=== PATIENT | female | born 2000 | race Caucasian/White ===

== ENCOUNTER 2022-07-28 03:50 | Emergency (ER) | payer OTHER ==
[~2022-07-28] VITALS: Ht 167.6 cm; Wt 95.0 kg
[2022-07-28] MEDS ORDERED: LIDOCAINE 1% 10 ML VIAL IARTIC ONE (05:30)
[2022-07-28] MEDS ORDERED: MORPHINE SULFATE 4 MG/ML SYRINGE IM ONE (05:30)
[2022-07-28] MEDS ORDERED: IBUP-2070 PO (06:06)
[2022-07-28] MEDS ORDERED: HYDR-4723 PO (06:06)
[2022-07-28 06:21] VITALS: BP 128/70
== END 2022-07-28 06:26 | disposition home or self-care (01) ==
LOC: EMS 03:51
DX: S52.532A Colles' fracture of left radius, initial encounter for closed fracture (principal); F10.129 Alcohol abuse with intoxication, unspecified; W01.0XXA Fall on same level from slipping, tripping and stumbling without subsequent striking against object, initial encounter; Y93.89 Activity, other specified; Y92.89 Other specified places as the place of occurrence of the external cause; Y99.8 Other external cause status
CPT/HCPCS: 99284; 73110; 73130; 29125; 96372; J2270; J3490